=== PATIENT | female | born 1940 | race Caucasian/White ===

== ENCOUNTER 2022-05-09 01:28 | Day surgery (SDC) | payer MEDICARE, OTHER, SELFPAY ==
--- NOTE | 2022-05-09 09:00 | ECG_ITS ---
Measurements Intervals [place] Rate: 70 P: 49 NH: 175 QRS: -76 QRSD: 160 T: 25 QT: 481 QTc: 520 Interpretive Statements SINUS RHYTHM RIGHT BUNDLE BRANCH BLOCK LEFT ANTERIOR FASCICULAR BLOCK BASELINE ARTIFACT- II, III, AVF, V3-V6 ABNORMAL ECG NO PREVIOUS ECG AVAILABLE FOR COMPARISON Electronically Signed On 05-09-2022 17:27:28 [employer]PER[employer] by Kd Rico D.O.
--- NOTE | 2022-05-09 12:10 | SUR.PREOP ---
pt arrived to [facility] @ 1200 for an elective cardioversion, EKG was taken and patient was in normal sinus rhythm. [employer] rep verified rhythm with his equipment. notified, procedure cancelled.
--- NOTE | 2022-05-09 12:40 | SUR.PREOP ---
Dr. Franco verified EKG of normal sinus rhythm. No home medication changes. Pt to be discharged home with follow up appointment.
== END 2022-05-09 12:44 | disposition home or self-care (01) ==
PROVIDERS: Visit Provider Specialist
PROC: 5A2204Z Restoration of Cardiac Rhythm, Single (ICD-10-PCS; principal; 2022-05-09 13:00)
DX: I48.91 Unspecified atrial fibrillation (principal); Z53.8 Procedure and treatment not carried out for other reasons
CPT/HCPCS: 99211; G0463; J7030